=== PATIENT | male | born 1960 | race Caucasian/White ===

== ENCOUNTER 2016-06-10 05:04 | Day surgery (SDC) | payer BC ==
[2016-06-04 14:11] LABS: ASCORBIC ACID (UR NOT ORDER) NEG (NEG); BILIRUBIN, URINE NEGATIVE (NEG); KETONE, URINE NEGATIVE (NEG); LEUKOCYTE ESTERASE(NOT OR NEG (NEG); WBC (NOT ORDERED) (RFLEX) 1 (0-5)
[2016-06-04 14:24] LABS: BUN (BLOOD UREA NITROGEN) 12 MG/DL (6-23); CALCIUM, SERUM 8.8 MG/DL (8.5-10.4); CHLORIDE, SERUM 109 MMOL/L (96-112); CO2 (CARBON DIOXIDE) 27 MMOL/L (24-34); CREATININE 0.88 MG/DL (0.70-1.30); GFR AFRICAN AMERICAN 113 ML/MIN (>=60); GFR NON AFRICAN AMERICAN 97 ML/MIN (>=60); GLUCOSE, SERUM 101 MG/DL (60-99); POTASSIUM, SERUM 4.4 MMOL/L (3.5-5.3); SODIUM, SERUM 143 MMOL/L (135-148)
--- NOTE | ~2016-06-10 | OP ---
Record Of Operation [facility] [address] [place] [id number] NAME: NURIA BAKER : 62 STATUS : REG [facility]#: [id number] AGE: 55 ADM/REG DATE : 06/10/16 MR#: [id number] REPORT SERV DATE: 06/10/16 DICTATED BY: DIDIER CRISOSTOMO III DATE: 06/10/16 REPORT STATUS : Draft TRANSCRIBED BY: MODL DATE: 06/10/16 DATE OF PROCEDURE: 06/10/2016 PROCEDURE: ESWL to right renal calculus. PREOPERATIVE DIAGNOSIS: Right renal calculus. POSTOPERATIVE DIAGNOSIS: Right renal calculus. ANESTHESIA: General. DESCRIPTION OF PROCEDURE: Following induction of adequate general anesthesia, the patient was then placed in the supine position. was placed across areas of both monitor screens. 2500 shocks were applied up to a power level 5. He tolerated the procedure well. There did appear to be a change in the stone. We will have to wait for several weeks for confirmation. He has to strain the urine. He will go home on hydrocodone. OB/MODL Didier Crisostomo III, M.D. / [id number] CC: Yazan Brunson III, M.D.
[~2016-06-10 05:04] MED LIST: BACLOFEN20 MG PO; CARDCD180 PO; CARDCD360 PO; CAT1 PO; CAT2 PO; CYMBALTA60 PO; FLOMAX4 PO; HYT5 PO; HYTRIN10 MG PO; K-TABS10 MEQ PO; L20 PO; LAMICTAL200 MG PO; METHOC750B PO; MOBIC7.5 PO; MSCONT15 PO; NABUMETONE750 MG PO; NEBUTONE; NIACIN 500 PO; NIASPAN500 PO; NORCO1 TAB PO; PERCOCET1 TA2 PO; PERCOCET1 TA4 PO; PRILO PO; PRIN20 PO; ULORIC40 MG PO; ULTRAM50 PO; VITAMIN B-121000 MC1
== END 2016-06-10 23:59 | disposition home or self-care (01) ==
LOC: SDC 05:04
PROVIDERS: Urology
PROC: 0TC03ZZ Extirpation of Matter from Right Kidney, Percutaneous Approach (ICD-10-PCS; principal; 2016-06-10 07:00)
DX: N20.0 Calculus of kidney (principal); I10 Essential (primary) hypertension; G47.33 Obstructive sleep apnea (adult) (pediatric); F41.9 Anxiety disorder, unspecified; F32.9 Major depressive disorder, single episode, unspecified; Z98.890 Other specified postprocedural states; Z88.5 Allergy status to narcotic agent; Z90.89 Acquired absence of other organs; Z90.49 Acquired absence of other specified parts of digestive tract
CPT/HCPCS: 50590; 74000; 80048; 81001; 85014; 85018; J0330; J2250; J2405; J3010